=== PATIENT | male | born 1970 | race Caucasian/White ===

== ENCOUNTER 2023-04-24 19:40 | Inpatient (IN) | payer MEDICAID ==
[~2023-04-24] VITALS: Ht 167.6 cm; Wt 99.3 kg
[2023-04-24 19:40] VITALS: BP 148/66; PULSE 58; RESP 18; TEMP 97.4
[2023-04-24] MEDS ORDERED: DEXTROSE 50% WATER 50ML SYRINGE IV PRN (20:45)
[2023-04-24] MEDS: BLOOD SUGAR DIAGNOSTIC STRIP TEST SCH (21:00)
[2023-04-24] MEDS: ATORVASTATIN CALCIUM 40MG TABLET PO SCH (22:16)
[2023-04-24] MEDS: INSULIN LISPRO 100 UNITS/ML SUBCUT SCH (22:23)
[2023-04-24] MEDS: INSULIN GLARGINE 100 UNITS/ML SUBCUT SCH (22:24)
[2023-04-25] MEDS ORDERED: NON FORMULARY PATIENT HOME MED XX SCH (06:00)
[2023-04-25 06:30] LABS: BASOPHILS % 0.5 % (0.0-2.0); EOSINOPHILS % 0.6 % (0.0-5.0); HEMATOCRIT. 34.2 % (42.0-52.0); HEMOGLOBIN. 11.7 g/dL (14.0-18.0); LYMPHOCYTES % 19.7 % (20.0-50.0); MEAN CORPUSCULAR HEMOGLOBIN 27.7 pg (28.0-32.0); MEAN CORPUSCULAR VOLUME 81.1 fL (80.0-94.0); MEAN PLATELET VOLUME 10.7 fl (7.4-10.4); MONOCYTES % 8.8 % (2.0-8.0); NEUTROPHILS % 70.4 % (40.0-76.0); PLATELET 200 x1000/uL (130-400); RED BLOOD CELL COUNT 4.21 mill/uL (4.7-6.1); RED CELL DISTRIBUTION WIDTH 15.2 % (11.6-14.6)
[2023-04-25] MEDS: BLOOD SUGAR DIAGNOSTIC STRIP TEST SCH ×4 (06:30→21:00)
[2023-04-25] MEDS: OMEPRAZOLE 20MG CAPSULE EXTENDED RELEASE PO SCH (06:30)
[2023-04-25] MEDS: INDAPAMIDE 1.25MG TABLET PO SCH (06:31)
[2023-04-25] MEDS: INSULIN LISPRO 100 UNITS/ML SUBCUT SCH ×4 (06:35→22:22)
[2023-04-25 06:48] LABS: CHLORIDE 107 mEq/L (98-107)
[2023-04-25 08:00] VITALS: BP 158/77; PULSE 61; RESP 20; TEMP 97.5
[2023-04-25] MEDS: METOPROLOL TARTRATE 50MG TABLET PO SCH ×2 (10:03→18:02)
[2023-04-25] MEDS: TAMSULOSIN HCL 0.4MG SR CAPSULE PO SCH (10:06)
[2023-04-25] MEDS: LOSARTAN POTASSIUM 100 MG TABLET PO SCH (10:07)
[2023-04-25] MEDS: AMLODIPINE 10MG TABLET PO SCH (10:07)
[2023-04-25] MEDS: FOLIC ACID 1MG TABLET PO SCH (10:07)
[2023-04-25] MEDS: EZETIMIBE 10MG TABLET PO SCH (10:07)
[2023-04-25] MEDS: FISH OIL/OMEGA-3 FATTY ACIDS 1000MG CAPSULE PO SCH (10:08)
[2023-04-25] MEDS: ASPIRIN 81MG TABLET PO SCH (10:09)
[2023-04-25] MEDS: INSULIN GLARGINE 100 UNITS/ML SUBCUT SCH ×2 (10:19→22:21)
[2023-04-25] MEDS ORDERED: ERGOCALCIFEROL 50000UNITS CAPSULE PO SCH (14:15)
[2023-04-25] MEDS ORDERED: NA PHOS,M-B/NA PHOS,DI-BA ENEMA 118ML PR PRN (14:30)
[2023-04-25] MEDS ORDERED: LACTULOSE 20G/30ML UDC PO PRN (14:30)
[2023-04-25] MEDS ORDERED: SENNOSIDES 8.6MG TABLET PO PRN (14:30)
[2023-04-25 20:00] VITALS: BP 136/66; PULSE 51; RESP 20; TEMP 97.4
[2023-04-25] MEDS: ATORVASTATIN CALCIUM 40MG TABLET PO SCH (22:15)
[2023-04-26] MEDS: BLOOD SUGAR DIAGNOSTIC STRIP TEST SCH ×4 (05:47→21:31)
[2023-04-26] MEDS: INDAPAMIDE 1.25MG TABLET PO SCH (06:10)
[2023-04-26] MEDS: OMEPRAZOLE 20MG CAPSULE EXTENDED RELEASE PO SCH (06:10)
[2023-04-26] MEDS: INSULIN LISPRO 100 UNITS/ML SUBCUT SCH ×4 (06:18→21:53)
[2023-04-26 08:00] VITALS: BP 129/63; PULSE 55; RESP 16; TEMP 97.7
[2023-04-26] MEDS: LOSARTAN POTASSIUM 100 MG TABLET PO SCH (08:10)
[2023-04-26] MEDS: TAMSULOSIN HCL 0.4MG SR CAPSULE PO SCH (08:10)
[2023-04-26] MEDS: AMLODIPINE 10MG TABLET PO SCH (08:11)
[2023-04-26] MEDS: EZETIMIBE 10MG TABLET PO SCH (08:11)
[2023-04-26] MEDS: METOPROLOL TARTRATE 50MG TABLET PO SCH ×2 (08:11→15:46)
[2023-04-26] MEDS: FISH OIL/OMEGA-3 FATTY ACIDS 1000MG CAPSULE PO SCH (08:11)
[2023-04-26] MEDS: ASPIRIN 81MG TABLET PO SCH (08:11)
[2023-04-26] MEDS: FOLIC ACID 1MG TABLET PO SCH (08:11)
[2023-04-26] MEDS: INSULIN GLARGINE 100 UNITS/ML SUBCUT SCH ×2 (10:11→21:53)
[2023-04-26 20:00] VITALS: BP 100/48; PULSE 51; RESP 19; TEMP 97.9
[2023-04-26] MEDS: ATORVASTATIN CALCIUM 40MG TABLET PO SCH (21:31)
[2023-04-27] MEDS: BLOOD SUGAR DIAGNOSTIC STRIP TEST SCH ×4 (06:30→21:38)
[2023-04-27] MEDS: INDAPAMIDE 1.25MG TABLET PO SCH (07:44)
[2023-04-27] MEDS: OMEPRAZOLE 20MG CAPSULE EXTENDED RELEASE PO SCH (07:44)
[2023-04-27] MEDS: INSULIN LISPRO 100 UNITS/ML SUBCUT SCH ×4 (07:51→21:54)
[2023-04-27 08:00] VITALS: BP 123/59; PULSE 60; RESP 18; TEMP 97.7
[2023-04-27] MEDS: METOPROLOL TARTRATE 50MG TABLET PO SCH ×2 (09:00→17:00)
[2023-04-27] MEDS: LOSARTAN POTASSIUM 100 MG TABLET PO SCH (09:01)
[2023-04-27] MEDS: FOLIC ACID 1MG TABLET PO SCH (09:02)
[2023-04-27] MEDS: EZETIMIBE 10MG TABLET PO SCH (09:02)
[2023-04-27] MEDS: AMLODIPINE 10MG TABLET PO SCH (09:02)
[2023-04-27] MEDS: TAMSULOSIN HCL 0.4MG SR CAPSULE PO SCH (09:04)
[2023-04-27] MEDS: FISH OIL/OMEGA-3 FATTY ACIDS 1000MG CAPSULE PO SCH (09:04)
[2023-04-27] MEDS: ASPIRIN 81MG TABLET PO SCH (09:04)
[2023-04-27] MEDS ORDERED: ERGO1250 PO (09:34)
[2023-04-27] MEDS ORDERED: METO-539 PO (09:35)
[2023-04-27] MEDS ORDERED: FOLI-43 PO (09:35)
[2023-04-27] MEDS ORDERED: SPIR25TA6 PO (09:36)
[2023-04-27] MEDS ORDERED: INDA2.5T5 PO (09:36)
[2023-04-27] MEDS ORDERED: AMLO10TA80 PO (09:38)
[2023-04-27] MEDS ORDERED: ASPI-1497 PO (09:38)
[2023-04-27] MEDS ORDERED: LIP40 PO (09:39)
[2023-04-27] MEDS ORDERED: OMEP20TA23 PO (09:40)
[2023-04-27] MEDS ORDERED: LOSA100T33 PO (09:55)
[2023-04-27] MEDS ORDERED: TAMS-11 PO (09:57)
[2023-04-27] MEDS ORDERED: EZET10TA13 PO (09:57)
[2023-04-27] MEDS ORDERED: EMPA25TA PO (09:58)
[2023-04-27] MEDS ORDERED: [UNRECOGNIZED DRUG - CODE] PO (10:00)
[2023-04-27] MEDS ORDERED: DICL100G31 TP (10:04)
[2023-04-27] MEDS ORDERED: FLUO20CA39 PO (10:13)
[2023-04-27] MEDS ORDERED: XALAO LEFTEYE (10:18)
[2023-04-27] MEDS ORDERED: OMEG1CAP46 PO (10:19)
[2023-04-27] MEDS ORDERED: BUPR-46 PO (10:20)
[2023-04-27] MEDS ORDERED: INSLIS SUBCUT (10:22)
[2023-04-27] MEDS ORDERED: INSU500V SQ (10:27)
[2023-04-27] MEDS ORDERED: DORZ10DR9 LEFTEYE (10:29)
[2023-04-27] MEDS ORDERED: TC1C15 TP (10:30)
[2023-04-27] MEDS: INSULIN GLARGINE 100 UNITS/ML SUBCUT SCH ×2 (10:34→21:53)
[2023-04-27] MEDS ORDERED: CLOT24CR TP (10:48)
[2023-04-27] MEDS ORDERED: INSULIN REGULAR (HUMULIN R) 300UNITS/3ML VIAL SUBCUT NR (17:30)
[2023-04-27] MEDS ORDERED: INSULIN LISPRO 100 UNITS/ML SUBCUT NR (18:05)
[2023-04-27 20:00] VITALS: BP 133/53; PULSE 55; RESP 18; TEMP 97
[2023-04-27] MEDS: ATORVASTATIN CALCIUM 40MG TABLET PO SCH (21:38)
[2023-04-28] MEDS: OMEPRAZOLE 20MG CAPSULE EXTENDED RELEASE PO SCH (06:44)
[2023-04-28] MEDS: BLOOD SUGAR DIAGNOSTIC STRIP TEST SCH ×4 (06:44→21:39)
[2023-04-28] MEDS: INDAPAMIDE 1.25MG TABLET PO SCH (06:45)
[2023-04-28] MEDS: INSULIN LISPRO 100 UNITS/ML SUBCUT SCH ×4 (07:34→21:57)
[2023-04-28 07:48] VITALS: BP 121/58; PULSE 58; RESP 18; TEMP 97.3
[2023-04-28] MEDS: FISH OIL/OMEGA-3 FATTY ACIDS 1000MG CAPSULE PO SCH (08:34)
[2023-04-28] MEDS: TAMSULOSIN HCL 0.4MG SR CAPSULE PO SCH (08:35)
[2023-04-28] MEDS: ASPIRIN 81MG TABLET PO SCH (08:35)
[2023-04-28] MEDS: FOLIC ACID 1MG TABLET PO SCH (08:36)
[2023-04-28] MEDS: LOSARTAN POTASSIUM 100 MG TABLET PO SCH (08:36)
[2023-04-28] MEDS: EZETIMIBE 10MG TABLET PO SCH (08:36)
[2023-04-28] MEDS: METOPROLOL TARTRATE 50MG TABLET PO SCH ×2 (08:36→16:20)
[2023-04-28] MEDS: AMLODIPINE 10MG TABLET PO SCH (08:36)
[2023-04-28] MEDS: INSULIN GLARGINE 100 UNITS/ML SUBCUT SCH ×2 (10:00→21:56)
[2023-04-28 16:17] VITALS: BP 123/56; PULSE 46; RESP 18; TEMP 97
[2023-04-28 20:29] VITALS: BP 99/43; PULSE 50; RESP 20; TEMP 97.6
[2023-04-28] MEDS: ATORVASTATIN CALCIUM 40MG TABLET PO SCH (21:47)
[2023-04-29] MEDS: INDAPAMIDE 1.25MG TABLET PO SCH (06:00)
[2023-04-29] MEDS: BLOOD SUGAR DIAGNOSTIC STRIP TEST SCH ×4 (06:02→21:41)
[2023-04-29] MEDS: INSULIN LISPRO 100 UNITS/ML SUBCUT SCH ×4 (06:41→22:31)
[2023-04-29] MEDS: FAMOTIDINE 20MG TABLET PO SCH (06:43)
[2023-04-29 08:00] VITALS: BP 123/58; PULSE 55; RESP 18; TEMP 97.3
[2023-04-29] MEDS: METOPROLOL TARTRATE 50MG TABLET PO SCH ×2 (09:00→17:18)
[2023-04-29] MEDS: LOSARTAN POTASSIUM 100 MG TABLET PO SCH (09:29)
[2023-04-29] MEDS: AMLODIPINE 10MG TABLET PO SCH (09:29)
[2023-04-29] MEDS: TAMSULOSIN HCL 0.4MG SR CAPSULE PO SCH (09:29)
[2023-04-29] MEDS: FOLIC ACID 1MG TABLET PO SCH (09:30)
[2023-04-29] MEDS: FISH OIL/OMEGA-3 FATTY ACIDS 1000MG CAPSULE PO SCH (09:30)
[2023-04-29] MEDS: EZETIMIBE 10MG TABLET PO SCH (09:30)
[2023-04-29] MEDS: ASPIRIN 81MG TABLET PO SCH (09:30)
[2023-04-29] MEDS: INSULIN GLARGINE 100 UNITS/ML SUBCUT SCH ×2 (09:52→22:32)
[2023-04-29 20:00] VITALS: BP 125/66; PULSE 67; RESP 18; TEMP 98.1
[2023-04-29] MEDS: ATORVASTATIN CALCIUM 40MG TABLET PO SCH (22:27)
[2023-04-30] MEDS: INDAPAMIDE 1.25MG TABLET PO SCH (06:00)
[2023-04-30] MEDS: BLOOD SUGAR DIAGNOSTIC STRIP TEST SCH ×4 (06:31→21:00)
[2023-04-30] MEDS: INSULIN LISPRO 100 UNITS/ML SUBCUT SCH ×4 (06:40→21:49)
[2023-04-30 08:00] VITALS: BP 126/57; PULSE 78; RESP 20; TEMP 97.4
[2023-04-30] MEDS: ASPIRIN 81MG TABLET PO SCH (08:36)
[2023-04-30] MEDS: EZETIMIBE 10MG TABLET PO SCH (08:37)
[2023-04-30] MEDS: LOSARTAN POTASSIUM 100 MG TABLET PO SCH (08:37)
[2023-04-30] MEDS: FOLIC ACID 1MG TABLET PO SCH (08:37)
[2023-04-30] MEDS: TAMSULOSIN HCL 0.4MG SR CAPSULE PO SCH (08:37)
[2023-04-30] MEDS: FISH OIL/OMEGA-3 FATTY ACIDS 1000MG CAPSULE PO SCH (08:37)
[2023-04-30] MEDS: AMLODIPINE 10MG TABLET PO SCH (08:38)
[2023-04-30] MEDS: METOPROLOL TARTRATE 50MG TABLET PO SCH ×2 (08:39→17:37)
[2023-04-30] MEDS: INSULIN GLARGINE 100 UNITS/ML SUBCUT SCH ×2 (10:00→21:52)
[2023-04-30 20:00] VITALS: BP 122/77; PULSE 88; RESP 16; TEMP 97.8
[2023-04-30] MEDS: ATORVASTATIN CALCIUM 40MG TABLET PO SCH (21:43)
[2023-05-01] MEDS: INDAPAMIDE 1.25MG TABLET PO SCH (06:00)
[2023-05-01] MEDS: BLOOD SUGAR DIAGNOSTIC STRIP TEST SCH (06:30)
[2023-05-01] MEDS: FAMOTIDINE 20MG TABLET PO SCH (07:17)
[2023-05-01] MEDS: INSULIN LISPRO 100 UNITS/ML SUBCUT SCH (07:20)
[2023-05-01 08:00] VITALS: BP 137/68; PULSE 50; RESP 18; TEMP 97.6
[2023-05-01] MEDS: METOPROLOL TARTRATE 50MG TABLET PO SCH (08:42)
[2023-05-01] MEDS: FISH OIL/OMEGA-3 FATTY ACIDS 1000MG CAPSULE PO SCH (08:43)
[2023-05-01] MEDS: AMLODIPINE 10MG TABLET PO SCH (08:43)
[2023-05-01] MEDS: LOSARTAN POTASSIUM 100 MG TABLET PO SCH (08:43)
[2023-05-01] MEDS: EZETIMIBE 10MG TABLET PO SCH (08:43)
[2023-05-01] MEDS: FOLIC ACID 1MG TABLET PO SCH (08:43)
[2023-05-01] MEDS: TAMSULOSIN HCL 0.4MG SR CAPSULE PO SCH (08:43)
[2023-05-01] MEDS: ASPIRIN 81MG TABLET PO SCH (08:43)
[2023-05-01] MEDS: INSULIN GLARGINE 100 UNITS/ML SUBCUT SCH (09:42)
[2023-05-01 10:21] VITALS: BP 137/68; PULSE 50; TEMP 97.6; O2SAT 100
== END 2023-05-01 11:32 | disposition home health service (06) | DRG 45 ==
PROVIDERS: ADMIT Psychiatry & Neurology Neurology; ATTEND Hospitalist
DX: I63.9 Cerebral infarction, unspecified (principal); I21.A1 Myocardial infarction type 2; E11.22 Type 2 diabetes mellitus with diabetic chronic kidney disease; I12.9 Hypertensive chronic kidney disease with stage 1 through stage 4 chronic kidney disease, or unspecified chronic kidney disease; N18.4 Chronic kidney disease, stage 4 (severe); E66.01 Morbid (severe) obesity due to excess calories; I16.0 Hypertensive urgency; G31.9 Degenerative disease of nervous system, unspecified; G93.89 Other specified disorders of brain; M47.812 Spondylosis without myelopathy or radiculopathy, cervical region; R53.1 Weakness; R00.1 Bradycardia, unspecified; R53.81 Other malaise; Z86.73 Personal history of transient ischemic attack (TIA), and cerebral infarction without residual deficits; Z91.81 History of falling; Z68.35 Body mass index [BMI] 35.0-35.9, adult
CPT/HCPCS: 36415; 80053; 82962; 83036; 85025; 92523; 92610; 93970; 97110; 97112; 97116; 97162; 97166; 97530; 97535; J1815